=== PATIENT | male | born 1985 | race African-American/Black ===

== ENCOUNTER 2021-06-19 21:48 | Emergency (ER) | payer MEDICAID ==
[~2021-06-19] VITALS: Ht 177.8 cm; Wt 72.6 kg
[2021-06-19] MEDS ORDERED: ONDANSETRON HCL/PF 4 MG/2 ML VIAL ONE ×2 (22:16→23:53)
--- NOTE | 2021-06-19 22:19 | NUR ---
EMT @ BEDSIDE FOR EKG
--- NOTE | 2021-06-19 22:19 | NUR ---
BIBS C/O BILATERAL LEG CRAMPS "FEELING DEHYDRATED S/P SAUNA [id number]" +VOMITTING +NAUSEA. PATIENT ALERT AND ORIENTED X3. AMBULATORY WITH NON LABORED BREATHING. PLACED IN BED 03 ON MONITOR AND POX.
--- NOTE | 2021-06-19 22:21 | NUR ---
BLOOD COLLECTED AND SENT TO LAB
[2021-06-19] MEDS ORDERED: IV NS 0.9% 1,000 ML BAG IV ONE (22:30)
[2021-06-19] MEDS ORDERED: ONDANSETRON HCL/PF 4 MG/2 ML VIAL IVP ONE (22:30)
--- NOTE | 2021-06-19 23:08 | NUR ---
alice Fonseca [phone]
[2021-06-19 23:20] LABS: BASOPHILS # (AUTO) 0.1 K/uL (0.0-0.2); BASOPHILS % (AUTO) 0.5 % (0.0-2.0); EOSINOPHILS % (AUTO) 0.1 % (0.0-6.0); HEMATOCRIT 42 % (39-51); HEMOGLOBIN 13.3 g/dL (13.5-17.5); LYMPHOCYTES % (AUTO) 13.7 % (20.0-44.0); MEAN CORPUSCULAR HGB CONC 32 g/dl (31.0-36.0); MEAN CORPUSCULAR VOLUME 74 fL (80-96); MONOCYTES # (AUTO) 0.9 K/uL (0.1-1.30); MONOCYTES % (AUTO) 5.8 % (2.0-12.0); NEUTROPHILS # (AUTO) 11.7 K/uL (1.8-8.9); NEUTROPHILS % (AUTO) 79.9 % (43.0-81.0); PLATELET COUNT (AUTO) 453 K/uL (150-450); RED BLOOD CELL COUNT(AUTO) 5.65 MIL/uL (4.5-6.0); WHITE BLOOD COUNT (AUTO) 14.7 K/uL (4.3-11.0)
--- NOTE | 2021-06-19 23:48 | NUR ---
called lab to f/u on results. per lab, machine is down 40mineta
[2021-06-20] MEDS ORDERED: IV NS 0.9% 1,000 ML BAG IV ONE
[2021-06-20] MEDS ORDERED: ONDANSETRON HCL/PF 4 MG/2 ML VIAL IV ONE
[2021-06-20 00:01] LABS: CALCIUM, SERUM 11.4 mg/dL (8.5-10.1); CREATININE 2.6 mg/dL (0.6-1.3)
[2021-06-20 00:06] LABS: BILIRUBIN,DIRECT 0.1 mg/dL (0.0-0.2); BILIRUBIN,TOTAL 0.5 mg/dL (0.2-1.0); TOTAL PROTEIN, SERUM 10.8 g/dL (6.4-8.2)
[2021-06-20] MEDS ORDERED: ONDA4TAB5 PO (00:27)
--- NOTE | 2021-06-20 00:36 | NUR ---
Patient discharged to home in stable condition. Written and verbal after care instructions given. Patient verbalizes understanding of instruction. IV removed. Catheter intact and site benign. Pressure and 4x4 applied to site. No bleeding noted. PT ambulatory with a steady gait, awaiting family for pickup
[2021-06-20 01:09] VITALS: BP 122/79
== END 2021-06-20 00:36 | disposition home or self-care (01) ==
LOC: ER 21:53
DX: E87.0 Hyperosmolality and hypernatremia (principal); E86.0 Dehydration; R25.2 Cramp and spasm; Z79.899 Other long term (current) drug therapy
CPT/HCPCS: 36415; 80048; 80076; 85025; 93005; 96361; 96374; 96376; 99284; J2405 ×2; J7030 ×2